=== PATIENT | male | born 1965 | race Caucasian/White ===

== ENCOUNTER 2019-05-20 12:14 | Emergency (ER) | payer MEDICAID ==
[~2019-05-20] VITALS: Ht 182.9 cm; Wt 62.1 kg
[2019-05-20] VITALS (15 sets, daily range): BP systolic 120–148; BP diastolic 57–70
[2019-05-20] MEDS ORDERED: CefTRIAXone/D5W-Rocephin 1gm 50 ML IV ONE (13:10)
[2019-05-20] MEDS ORDERED: normal saline 1000ML IV soln IV ONE (13:10)
--- NOTE | 2019-05-20 13:56 | NUR ---
vascular at bedside
--- NOTE | 2019-05-20 13:57 | NUR ---
LAB CALLED AND IS REOPRDERING CBC.
[2019-05-20] MEDS ORDERED: LIDOcaine 1% W/epiNEPHrine 1:200,000 10ml vial IJ ONE (14:10)
[2019-05-20 14:34] LABS: LYMPHOCYTES # (AUTO) 0.9 X10'3 (1.1-4.8); MONOCYTES # (AUTO) 0.3 X10'3 (0-0.9); NEUTROPHILS % (AUTO) 45.8 % (42-75)
[2019-05-20 14:36] LABS: BASOPHILS % (AUTO) 0.8 % (0-1); EOSINOPHILS % (AUTO) 0.1 % (0-6); LYMPHOCYTES % (AUTO) 40.5 % (21-51); MEAN CORPUSCULAR HEMOGLOBIN 36.1 PG (27.0-31.0); MEAN CORPUSCULAR HGB CONC 34.8 g/dL (33.0-36.5); MEAN CORPUSCULAR VOLUME 103.6 FL (78-98); MEAN PLATELET VOLUME 7.4 FL (7.4-10.4); MONOCYTES % (AUTO) 12.8 % (2-12); RED BLOOD COUNT 0.93 X10'6 (4.70-6.10); RED CELL DISTRIBUTION WIDTH 14.6 % (11.5-14.5); WHITE BLOOD COUNT 2.1 X10'3 (4.5-11.0)
[2019-05-20 14:38] LABS: HEMOGLOBIN 3.4 g/dl (14.0-17.9)
[2019-05-20 14:40] LABS: HEMATOCRIT 9.6 % (42.0-52.0)
[2019-05-20 14:41] LABS: PLATELET COUNT 10 X10'3 (140-440)
[2019-05-20 14:47] LABS: ALANINE AMINOTRANSFERASE 30 U/L (12-78); ALBUMIN 2.7 G/DL (3.4-5.0); ALBUMIN/GLOBULIN RATIO 0.6 (1.1-1.5); ALKALINE PHOSPHATASE 105 IU/L (46-116); ANION GAP 13 (8-16); ASPARTATE AMINO TRANSFERASE 25 U/L (10-37); BILIRUBIN,TOTAL 0.6 MG/DL (0.1-1.0); BLOOD UREA NITROGEN 13 MG/DL (7-18); CALCIUM 8.2 MG/DL (8.5-10.1); CHLORIDE 101 MMOL/L (99-107); CREATININE 0.93 MG/DL (0.60-1.10); GLUCOSE 121 MG/DL (70-104); POTASSIUM 3.7 MMOL/L (3.5-5.1); SODIUM 136 MMOL/L (135-145); TOTAL CARBON DIOXIDE 21.6 MMOL/L (24-32); eGFR 84 ML/MIN
[2019-05-20 15:08] LABS: NUCLEATED RED BLOOD CELLS 1 /100WBC (0-0); PLATELET ESTIMATE DECREASED; TOTAL CELLS COUNTED 100
[2019-05-20] MEDS ORDERED: TETanus/Pertussis (Acell)/Diphther VAC/PF (Tdap-Adult) 0.5ml syringe IMVAC ONE (15:10)
--- NOTE | 2019-05-20 15:10 | NUR ---
PATIENT REPORTS LIVING IN [facility] FOR THE FIRST 36 YEARS OF HIS LIFE. PATIENT DENIES THE FOLLOWING HIGH RISK BEHAVIOR: NO IVDA, NO ANAL SEX, NO RECENT UNPROTECTED SEX.
--- NOTE | 2019-05-20 15:21 | NUR ---
FIRST UNIT OF PRBC STARTED
[2019-05-20 15:34] LABS: OCCULT BLOOD STOOL POSITIVE (Neg)
[2019-05-20] MEDS ORDERED: NO HOME MEDS (16:00)
[2019-05-20] MEDS ORDERED: pantoprazole 40 MG vial IV ONE (16:00)
[2019-05-20 16:18] LABS: ETHANOL < 0.010 GM/DL (0.0-0.010)
[2019-05-20 16:57] LABS: URINE AMPHETAMINE SCREEN NEGATIVE (Neg); URINE BARBITUATE SCREEN NEGATIVE (Neg); URINE BENZODIAZEPINES SCREEN NEGATIVE (Neg); URINE CANNABINOID SCREEN POSITIVE (Neg); URINE COCAINE SCREEN NEGATIVE (Neg); URINE METHADONE SCREEN NEGATIVE (Neg); URINE OPIATE SCREEN NEGATIVE (Neg); URINE PHENCYCLIDINE SCREEN NEGATIVE (Neg)
[2019-05-20] MEDS: pantoprazole 40MG/NS 100ML BAG 100 ML IV SCH ×2 (17:17→21:14)
[2019-05-20] MEDS: diatr meglu/diatrizoate 30ml oral sol.-(3 dose) bottle PO SCH ×3 (18:30→20:21)
--- NOTE | 2019-05-20 19:04 | NUR ---
VERIFIED PLATELETS WITH MARTA VENEGAS WHO IS CALLING THE BLOOD BANK FOR A HARD COPY TO DO A 2 RN VERIFICATION WHICH WAS DONE. WE ARE DOING A DOWNTIME FORM
--- NOTE | 2019-05-20 19:40 | NUR ---
CALLED CT - THEY ARE AWARE PT HAS HAD 2ND DOSE OF ORAL CONTRAST
[2019-05-20] MEDS ORDERED: iohexol 300mg/ml 100ml inj. ONE (20:17)
--- NOTE | 2019-05-20 21:54 | NUR ---
SEE DOWNTIME FOR FOR FFP TRANSFUSION - BLOOD CHECK DONE IN LAB WITH TECH AND AGAIN AT BEDSIDE WITH 2 RN'S - PRE TRANSFUSION VITALS NOTED. INFUSING INTO 18G IN LAC
--- NOTE | 2019-05-20 22:04 | NUR ---
PHONE REPORT TO ADAN VENEGAS ONCOLGY AT [facility] [phone]; ACCEPTING MD IS DR SANTAMARIA HOSPITALIST AND ONCOLOGIST DR FERGUSON
[2019-05-20] MEDS ORDERED: diphenhydrAMINE 50 mg/ml inj IV ONE (22:25)
--- NOTE | 2019-05-20 22:29 | NUR ---
DR. BAL MADE AWARE PT IS GETTING FFP AND REPORTS LOCALIZED ITCHINESS BELOW IV, NEAR WOUND AND UP THROUGH MID UPPER ARM AREA ONLY. NO OTHER ADVERSE REACTION NOTED. V/S. TEMP UP 0.2 FROM BASELINE. PT DENIES ANY SOB OR ISSUES. FFP DONE INFUSING. FFP BAG SENT TO LAB PER PROTOCOL.
== END 2019-05-20 22:42 | disposition short-term general hospital (02) ==
LOC: ER 12:15
DX: S51.852A Open bite of left forearm, initial encounter (principal); D64.9 Anemia, unspecified; D69.6 Thrombocytopenia, unspecified; G89.29 Other chronic pain; F17.200 Nicotine dependence, unspecified, uncomplicated; W55.01XA Bitten by cat, initial encounter; Y93.89 Activity, other specified; Y92.89 Other specified places as the place of occurrence of the external cause; Y99.9 Unspecified external cause status
CPT/HCPCS: 36415; 36430; 71045; 74178; 80053; 80305; 80320; 82272; 84145; 85025; 85610; 86885; 86900; 86901; 86920; 87040; 90471; 90715; 93971; 96365; 96367; 96375; 96376; 99291; C9113; J0696; J1200; J7030; P9016; P9035; P9059; Q9963; Q9967

== ENCOUNTER 2020-02-05 11:24 | Day surgery (SDC) | payer MEDICAID ==
[~2020-02-05] VITALS: Ht 188 cm; Wt 67.9 kg
[~2020-02-05 11:24] MED LIST: NO HOME MEDS
[2020-02-05 12:00] VITALS: BP 148/80
[2020-02-05] MEDS ORDERED: normal saline 1000ml 1,000 ML IV PRN (12:20)
[2020-02-05] MEDS ORDERED: midazolam 2 mg/2 ml injection ONE (12:33)
[2020-02-05] MEDS ORDERED: LIDOcaine 1%/PF 5ML 10 MG/ML VIAL ONE (12:33)
[2020-02-05] MEDS ORDERED: LEVO500T89 PO (12:33)
[2020-02-05] MEDS ORDERED: heparin sodium, porcine/PF 100unit/ml 5ML syringe ONE (12:33)
[2020-02-05] MEDS ORDERED: ACYC-202 PO (12:33)
[2020-02-05] MEDS ORDERED: VORI200T3 PO (12:33)
[2020-02-05] MEDS ORDERED: fentaNYL/PF 50MCG/1 ML 2ML syringe ONE (12:33)
[2020-02-05] MEDS ORDERED: ASPI-1264 PO (12:33)
[2020-02-05] MEDS ORDERED: LIDOcaine 1% w/epiNEPHrine 1:200,000 30ml vial ONE (13:28)
[2020-02-05 14:15] VITALS: BP 138/76
[2020-02-05 14:30] VITALS: BP 137/87
[2020-02-05 14:45] VITALS: BP 134/81
[2020-02-05 15:00] VITALS: BP 129/80
[2020-02-05 15:15] VITALS: BP 132/69
== END 2020-02-05 15:20 | disposition home or self-care (01) ==
LOC: SSTAY O 11:24
PROVIDERS: ATTEND Radiology Diagnostic Radiology
DX: D46.20 Refractory anemia with excess of blasts, unspecified (principal); Z79.899 Other long term (current) drug therapy; Z79.82 Long term (current) use of aspirin
CPT/HCPCS: 36561; 76937; 77001; 99152; 99153; C1769; C1788; C1894; J1642; J2250; J3010; J7030